=== PATIENT | male | born 1960 | race Caucasian/White ===

== ENCOUNTER 2017-11-20 21:13 | Emergency (ER) | payer OTHER ==
--- NOTE | 2017-11-20 23:39 | ER Document Report ---
ED Medical Screen (RME) - General Chief Complaint: Urinary Problem Stated Complaint: CONSTIPATION,PEEING BLOOD Time Seen by Provider: 11/20/17 23:35 Mode of Arrival: Ambulatory Information source: Patient Notes: 57-year-old male presents to ED urinating blood starting yesterday. He states he just dribbles a little bit at a time but it is blood. He states he has some left flank pain. He states she has had no bowel movement in 5 days he states has no little small bowel movements no bowel movements at all. He states he has a history of bipolar diabetes blood pressure and cholesterol. He states he smokes pack and 1/2-2 packs a day. Patient has hypoactive bowel sounds with a firm abdomen. He states this is his normal abdomen. I have greeted and performed a rapid initial assessment of this patient. A comprehensive ED assessment and evaluation of the patient, analysis of test results and completion of medical decision making process will be conducted by an additional ED providers. TRAVEL OUTSIDE OF THE [place] IN LAST 30 DAYS: No - Related Data Allergies/Adverse Reactions: No Known Allergies Allergy (Unverified 11/20/17 21:19) Physical Exam - Vital signs Vitals: Temp Pulse Resp BP Pulse Ox 98.2 F 102 H 18 149/82 H 97 11/20/17 21:37 11/20/17 21:37 11/20/17 21:37 11/20/17 21:37 11/20/17 21:37 Course - Vital Signs Vital signs: Temp Pulse Resp BP Pulse Ox 98.2 F 102 H 18 149/82 H 97 11/20/17 21:37 11/20/17 21:37 11/20/17 21:37 11/20/17 21:37 11/20/17 21:37
[2017-11-21 00:09] LABS: APPEARANCE,URINE CLEAR; BILIRUBIN,URINE NEGATIVE (NEGATIVE); COLOR,URINE RED; GLUCOSE, URINE 50 mg/dL (NEGATIVE); KETONES,URINE NEGATIVE (NEGATIVE); URINE SPECIFIC GRAVITY 1.009
[2017-11-21 00:10] LABS: LEUKOCYTE ESTERASE,URINE NEGATIVE (NEGATIVE); NITRITE,URINE NEGATIVE (NEGATIVE); PROTEIN,URINE 100 mg/dL (NEGATIVE); UROBILINOGEN,URINE NEGATIVE mg/dL (<2.0)
[2017-11-21 00:44] LABS: ABSOLUTE BASOPHILS # (AUTO) 0.1 10^3/uL (0.0-0.2); ABSOLUTE EOSINOPHILS # (AUTO) 0.1 10^3/uL (0.0-0.6); ABSOLUTE LYMPHOCYTES (AUTO) 2.8 10^3/uL (0.5-4.7); ABSOLUTE MONOCYTES (AUTO) 0.9 10^3/uL (0.1-1.4); ABSOLUTE NEUT (AUTO) 7.2 10^3/uL (1.7-8.2); BASOPHILS % (AUTO) 0.7 % (0-2); EOSINOPHILS % (AUTO) 1.1 % (0-6); HEMATOCRIT 46.4 % (37.9-51.0); HEMOGLOBIN 16.5 g/dL (13.5-17.0); LYMPHOCYTES % (AUTO) 25.2 % (13-45); MEAN CORPUSCULAR HEMOGLOBIN 31.2 pg (27.0-33.4); MEAN CORPUSCULAR HGB CONC 35.6 g/dL (32.0-36.0); MEAN CORPUSCULAR VOLUME 88 fl (80-97); MONOCYTES % (AUTO) 8.1 % (3-13); PLATELET COUNT 245 10^3/uL (150-450); RED CELL DISTRIBUTION WIDTH 13.2 % (11.5-14.0); SEGMENTED NEUTROPHILS % (AUTO) 64.9 % (42-78); TOTAL CELLS COUNTED % (AUTO) 100 %; WHITE BLOOD COUNT 11.1 10^3/uL (4.0-10.5)
[2017-11-21 01:14] LABS: ALANINE AMINOTRANSFERASE 41 U/L (21-72); ALBUMIN 5.1 g/dL (3.5-5.0); ALKALINE PHOSPHATASE 57 U/L (38-126); ANION GAP 16 (5-19); ASPARTATE AMINO TRANSFERASE 26 U/L (17-59); BILIRUBIN,DIRECT 0.5 mg/dL (0.0-0.4); BILIRUBIN,TOTAL 1.7 mg/dL (0.2-1.3); BLOOD UREA NITROGEN 23 mg/dL (7-20); CALCIUM 9.7 mg/dL (8.4-10.2); CARBON DIOXIDE 24 mmol/L (22-30); CHLORIDE 99 mmol/L (98-107); CREATINE KINASE 224 U/L (55-170); GLUCOSE 171 mg/dL (75-110); SODIUM 138.8 mmol/L (137-145); TOTAL PROTEIN 7.7 g/dL (6.3-8.2)
--- NOTE | 2017-11-21 01:21 | RADIOLOGY REPORT (SQ) ---
CT ABDOMEN WITHOUT IV CONTRAST HISTORY: New onset hematuria. COMPARISON: None. TECHNIQUE: CT scan of the abdomen and pelvis. This exam was performed according to our departmental dose-optimization program, which includes automated exposure control, adjustment of the mA and/or kV according to patient size and/or use of iterative reconstruction technique. FINDINGS: Lung bases are clear. No pleural or pericardial effusions. Hepatomegaly and hepatic steatosis. Calcifications within the pancreatic head and uncinate process. Gallbladder, spleen, and adrenal glands are unremarkable. Kidneys are normal without hydronephrosis. 3 mm obstructing stone in the distal right ureter with minimal proximal hydroureter (axial image 65/96). Hyperdense material within the gallbladder lumen suggesting blood products. Prostate gland and seminal vesicles are unremarkable. No bowel obstruction. Appendix is normal. Colonic diverticulosis without evidence of diverticulitis. No adenopathy or ascites. No abdominal aortic aneurysm or dissection. Osseous structures are intact. Bilateral fat-containing inguinal hernias IMPRESSION: Likely 3 mm obstructing stone in the distal right ureter with minimal proximal hydroureter. Hyperdense material in the bladder lumen suggesting blood products.
[2017-11-21 02:31] VITALS: BP 156/81
--- NOTE | 2017-11-21 02:47 | ER Document Report ---
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 The patient denies any associated pain. He states that initiating a urine flow is somewhat difficult secondary to the hematuria. He states that this feels the same as when he had a kidney stone in the past at which time again he had no pain. He has not seen his general doctor regarding today's concerns. He denies any nausea, vomiting, fever or constitutional symptoms. Nothing improves or worsens his symptoms. He does also note that he has not had a bowel movement for the past 5 days. TRAVEL OUTSIDE OF THE [place] IN LAST 30 DAYS: No - Related Data Allergies/Adverse Reactions: No Known Allergies Allergy (Unverified 11/20/17 21:19) Past Medical History - General Information source: Patient - Social History Smoking Status: Current Every Day Smoker Chew tobacco use (# tins/day): No Frequency of alcohol use: None Drug Abuse: None Lives with: Alone Family History: Reviewed & Not Pertinent Patient has suicidal ideation: No Patient has homicidal ideation: No Renal/ Medical History: Denies: Hx Peritoneal Dialysis Review of Systems - Review of Systems Notes: Constitutional: Negative for fever. HENT: Negative for sore throat. Eyes: Negative for visual changes. Cardiovascular: Negative for chest pain. Respiratory: Negative for shortness of breath. Gastrointestinal: Negative for abdominal pain, vomiting or diarrhea. Genitourinary: Positive for hematuria Musculoskeletal: Negative for back pain. Skin: Negative for rash. Neurological: Negative for headaches, weakness or numbness. 10 point ROS negative except as marked above and in HPI. Physical Exam - Vital signs Vitals: Temp Pulse Resp BP Pulse Ox 98.2 F 102 H 18 149/82 H 97 11/20/17 21:37 11/20/17 21:37 11/20/17 21:37 11/20/17 21:37 11/20/17 21:37 Interpretation: Tachycardic Notes: PHYSICAL EXAMINATION: GENERAL: Well-appearing, well-nourished and in no acute distress. HEAD: Atraumatic, normocephalic. EYES: Pupils equal round and reactive to light, extraocular movements intact, sclera anicteric, conjunctiva are normal. ENT: nares patent, oropharynx clear without exudates. Moist mucous membranes. NECK: Normal range of motion, supple without lymphadenopathy LUNGS: Breath sounds clear to auscultation bilaterally and equal. No wheezes rales or rhonchi. HEART: Regular rate and rhythm without murmurs ABDOMEN: Soft, nontender, normoactive bowel sounds. No guarding, no rebound. No masses appreciated. EXTREMITIES: Normal range of motion, no pitting or edema. No cyanosis. NEUROLOGICAL: No focal neurological deficits. Moves all extremities spontaneously and on command. PSYCH: Normal mood, normal affect. SKIN: Warm, Dry, normal turgor, no rashes or lesions noted. Course - Re-evaluation Re-evalutation: 11/21/17 02:46 Presents with findings consistent with acute nephrolithiasis. Urinalysis does show hematuria. Laboratory otherwise unremarkable. Pain was able to be controlled here in the emergency department. Patient is tolerating oral intake. Clinical history is not consistent with an acute abdominal aneurysm or dissection, DE, or pulmonary embolus. Urinalysis does not show findings consistent with an infected stone. Vitals have remained within normal limits. Patient will be discharged with recommendations to follow-up with urology, and return precautions. They are in agreement with this plan and verbalized indications return to emergency department. - Vital Signs Vital signs: Temp Pulse Resp BP Pulse Ox 98.2 F 91 16 156/81 H 97 11/20/17 21:37 11/21/17 02:00 11/21/17 02:00 11/21/17 02:00 11/21/17 02:00 - Laboratory Result Diagrams: 11/21/17 00:24 11/21/17 00:24 Laboratory results interpreted by me: 11/20/17 11/21/17 11/21/17 22:12 00:24 00:24 WBC 11.1 H BUN 23 H Glucose 171 H Total Bilirubin 1.7 H Direct Bilirubin 0.5 H Creatine Kinase 224 H Albumin 5.1 H Urine Protein 100 H Urine Glucose (UA) 50 H Urine Blood LARGE H - Diagnostic Test Radiology reviewed: Reports reviewed Discharge - Discharge Clinical Impression: Kidney stone on right side Hematuria Qualifiers: Hematuria type: gross Qualified Code(s): R31.0 - Gross hematuria Condition: Good Disposition: HOME, SELF-CARE Additional Instructions: Your symptoms should improve over the course of the next one week. Please also return if you develop fever, persistent vomiting, or any other symptoms that are concerning to you. You should take ibuprofen 600 mg every 6 hours for pain. You are also been sent home with a medication called Flomax to help pass the stone. Please follow-up with urology in the next 2-3 days. Prescriptions: Tamsulosin HCl [Flomax 0.4 mg Cap.sr] 0.4 mg PO DAILY #7 cap.sr.24h
== END 2017-11-21 02:57 | disposition home or self-care (01) ==
LOC: ER 21:13
DX: N20.0 Calculus of kidney (principal); R31.0 Gross hematuria; K59.00 Constipation, unspecified; F17.210 Nicotine dependence, cigarettes, uncomplicated; I10 Essential (primary) hypertension; Z87.442 Personal history of urinary calculi
CPT/HCPCS: 36415; 76380; 80053; 81001; 82550; 85025; 99284

== ENCOUNTER 2017-11-29 20:23 | Emergency (ER) | payer OTHER ==
[2017-11-29 20:35] VITALS: BP 145/86
[2017-11-29 22:41] LABS: BILIRUBIN,URINE NEGATIVE (NEGATIVE); GLUCOSE, URINE 50 mg/dL (NEGATIVE); KETONES,URINE NEGATIVE (NEGATIVE); LEUKOCYTE ESTERASE,URINE NEGATIVE (NEGATIVE); NITRITE,URINE NEGATIVE (NEGATIVE); PROTEIN,URINE >=500 mg/dL (NEGATIVE); URINE SPECIFIC GRAVITY 1.033
[2017-11-29 22:42] LABS: APPEARANCE,URINE TURBID; COLOR,URINE RED
[2017-11-29] MEDS ORDERED: CYCLOBENZAPRINE HCL 10 MG TABLET PO ONE (23:17)
--- NOTE | 2017-11-29 23:18 | ER Document Report ---
HPI - HPI Pain Level: Denies Notes: Patient is a 57-year-old male who presents to the ED complaining of hematuria 3 today. Patient states that he was evaluated about a week and half ago for hematuria and was found to have a 3 mm ureteral stone. Patient states that he has not had any pain or discomfort at that time and continues to have no pain. Patient states that after he was discharged his urine did end up clearing up after a few days. Patient states that his urine was clear until today. 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 Otherwise he denies any drug allergies and has no other concerns or complaints. He is eating and drinking without any difficulties. He is having normal bowel movements. Denies any headache, fever, URI, sore throat, chest pain, palpitations, syncope, cough, shortness of breath, wheeze, dyspnea, abdominal pain, nausea/vomiting/diarrhea, urinary retention, dysuria, back pain, loss of control of bowel or bladder, numbness/tingling, saddle anesthesia, muscle paralysis/weakness, or rash. - ROS Systems Reviewed and Negative: Yes All other systems reviewed and negative Past Medical History - Social History Smoking Status: Current Every Day Smoker Family History: Reviewed & Not Pertinent Renal/ Medical History: Denies: Hx Peritoneal Dialysis Vertical Provider Document - CONSTITUTIONAL Agree With Documented VS: Yes Notes: PHYSICAL EXAMINATION: GENERAL: Well-appearing, well-nourished and in no acute distress. I did notice pt having some muscle spasming during the visit. HEAD: Atraumatic, normocephalic. EYES: Pupils equal round and reactive to light, extraocular movements intact, sclera anicteric, conjunctiva are normal. ENT: Nares patent and without discharge. oropharynx clear without exudates. No tonsilar hypertrophy or erythema. Moist mucous membranes. NECK: Normal range of motion, supple without lymphadenopathy LUNGS: Breath sounds clear to auscultation bilaterally and equal. No wheezes rales or rhonchi. HEART: Regular rate and rhythm without murmurs, rubs, gallops. ABDOMEN: Soft, nontender, nondistended abdomen. No guarding, no rebound. No masses appreciated. Normal bowel sounds present. No CVA tenderness bilaterally. Musculoskeletal: FROM to passive/active. Strength 5+/5. Extremities: No cyanosis, clubbing, or edema b/l. Peripheral pulses 2+. Capillary refill less than 3 seconds. NEUROLOGICAL: Cranial nerves grossly intact. Normal speech, normal gait. Normal sensory, motor exams PSYCH: Normal mood, normal affect. SKIN: Warm, Dry, normal turgor, no rashes or lesions noted. - INFECTION CONTROL TRAVEL OUTSIDE OF THE [place] IN LAST 30 DAYS: No Course - Re-evaluation Re-evalutation: 11/30/17 00:31 Patient is an afebrile, well-hydrated 57-year-old male who presents to the ED with muscle spasming and hematuria. I suspect the hematuria is secondary to a possible passage of his known ureteral stone through the urethra. I did review with patient that although the most likely scenario is hematuria related to his known recent stone, it could also be a worst case scenario of a sign of cancer so he needs to monitor and follow-up appropriately. CBC, CMP, CK unremarkable for acute pathology. Urinalysis showed hematuria without pyuria. Patient does not have any pain or discomfort. Patient is tolerating p.o. I difficulties and is nontoxic-appearing. His abdomen is soft and nontender. No other labs or imaging warranted at this time based on H&P. Patient did receive Flexeril 10 mg today. Low suspicion/risk for acute appendicitis, bowel obstruction, acute cholecystitis, perforated diverticulitis, incarcerated hernia, pancreatitis, perforated ulcer, peritonitis, sepsis, testicular torsion, or other systemic emergent condition at this time. Patient is aware that his condition can change from initial presentation and he needs to monitor symptoms closely and seek medical attention if any acute changes. Conservative measures otherwise for symptoms. Recheck with PCM in 2-3 days. Schedule appointment with a urologist. Return to the ED with any worsening/concerning symptoms otherwise as reviewed in discharge. Patient is in agreement. - Vital Signs Vital signs: Temp Pulse Resp BP Pulse Ox 97.4 F 98 18 145/86 H 99 11/29/17 20:27 11/29/17 20:27 11/29/17 20:27 11/29/17 20:27 11/29/17 20:27 - Laboratory Result Diagrams: 11/29/17 23:50 11/29/17 23:50 Laboratory results interpreted by me: 11/29/17 21:52 Urine Protein >=500 H Urine Glucose (UA) 50 H Urine Blood LARGE H Urine Urobilinogen 2.0 H Discharge - Discharge Clinical Impression: Muscle spasm Hematuria Qualifiers: Hematuria type: unspecified type Qualified Code(s): R31.9 - Hematuria, unspecified Condition: Stable Disposition: HOME, SELF-CARE Instructions: Hematuria ([facility]) Additional Instructions: As reviewed, the most likely scenario to your hematuria is secondary to your known stone and possible recent passage of that stone. Worse case scenario painless hematuria can be a sign of cancer or other etiology. Monitor symptoms closely, and follow-up appropriately with your PCM/urologist. Push fluids (i.e. water, cranberry juice) Proper hygenic technique Keep the skin clean Tylenol/ibuprofen as needed Take medications as directed F/u with your PCM in 2-3 days for a recheck Schedule consult with a urologist for further evaluation and management. Return to the ED with any worsening symptoms and/or development of fever, headache, chest pain, palpitations, syncope, shortness of breath, trouble breathing, abdominal pain, n/v/d, blood in stool/urine, loss of control of bowel /bladder, urinary retention, or other worsening symptoms that are concerning to you. Prescriptions: Cyclobenzaprine HCl [Flexeril 10 mg Tablet] 10 mg PO TIDP PRN #15 tab PRN Reason: Forms: Elevated Blood Pressure, Smoking Cessation Education Referrals: MARIANELA GOLDMAN MD [MYRIAM NELSON] - Follow up as needed SHAWN MARTINEZ II, MD [MYRIAM NELSON] - Follow up in 3-5 days
[2017-11-30 00:13] LABS: ABSOLUTE BASOPHILS # (AUTO) 0.1 10^3/uL (0.0-0.2); ABSOLUTE EOSINOPHILS # (AUTO) 0.1 10^3/uL (0.0-0.6); ABSOLUTE LYMPHOCYTES (AUTO) 2.5 10^3/uL (0.5-4.7); ABSOLUTE MONOCYTES (AUTO) 0.8 10^3/uL (0.1-1.4); ABSOLUTE NEUT (AUTO) 8.2 10^3/uL (1.7-8.2); BASOPHILS % (AUTO) 0.4 % (0-2); EOSINOPHILS % (AUTO) 1.2 % (0-6); HEMOGLOBIN 16.4 g/dL (13.5-17.0); LYMPHOCYTES % (AUTO) 21.5 % (13-45); MEAN CORPUSCULAR HGB CONC 34.8 g/dL (32.0-36.0); MEAN CORPUSCULAR VOLUME 89 fl (80-97); MONOCYTES % (AUTO) 6.6 % (3-13); PLATELET COUNT 310 10^3/uL (150-450); RED BLOOD COUNT 5.28 10^6/uL (4.35-5.55); RED CELL DISTRIBUTION WIDTH 13.3 % (11.5-14.0); SEGMENTED NEUTROPHILS % (AUTO) 70.3 % (42-78); TOTAL CELLS COUNTED % (AUTO) 100 %; WHITE BLOOD COUNT 11.7 10^3/uL (4.0-10.5)
[2017-11-30 00:25] LABS: ALANINE AMINOTRANSFERASE 48 U/L (21-72); ALBUMIN 5.3 g/dL (3.5-5.0); ALKALINE PHOSPHATASE 64 U/L (38-126); ANION GAP 16 (5-19); ASPARTATE AMINO TRANSFERASE 28 U/L (17-59); BILIRUBIN,DIRECT 0.3 mg/dL (0.0-0.4); BLOOD UREA NITROGEN 15 mg/dL (7-20); CALCIUM 10.3 mg/dL (8.4-10.2); CARBON DIOXIDE 22 mmol/L (22-30); CHLORIDE 97 mmol/L (98-107); CREATINE KINASE 166 U/L (55-170); GLUCOSE 152 mg/dL (75-110); POTASSIUM 4.1 mmol/L (3.6-5.0); SODIUM 134.5 mmol/L (137-145); TOTAL PROTEIN 7.9 g/dL (6.3-8.2)
== END 2017-11-30 00:53 | disposition home or self-care (01) ==
LOC: ER 20:23
DX: M62.838 Other muscle spasm (principal); R31.9 Hematuria, unspecified
CPT/HCPCS: 36415; 80053; 81001; 82550; 85025; 99283

== ENCOUNTER 2017-12-01 12:26 | Inpatient (IN) | payer OTHER ==
--- NOTE | 2017-12-01 13:53 | ER Document Report ---
ED Medical Screen (RME) - General Chief Complaint: Possible Kidney Stone Stated Complaint: WEAK, NAUSEA Time Seen by Provider: 12/01/17 13:47 TRAVEL OUTSIDE OF THE [place] IN LAST 30 DAYS: No - Related Data Allergies/Adverse Reactions: No Known Allergies Allergy (Verified 11/29/17 20:24) Past Medical History - Social History Frequency of alcohol use: None Drug Abuse: Prescription drugs Endocrine Medical History: Reports: Hx Diabetes Mellitus Type 2 Renal/ Medical History: Denies: Hx Peritoneal Dialysis Physical Exam - Vital signs Vitals: Temp Pulse BP Pulse Ox 97.4 F 100 91/57 L 98 12/01/17 12:49 12/01/17 12:49 12/01/17 12:49 12/01/17 12:49 Course - Vital Signs Vital signs: Temp Pulse Resp BP Pulse Ox 97.4 F 100 91/57 L 98 12/01/17 12:49 12/01/17 12:49 12/01/17 12:49 12/01/17 12:49 - Laboratory Result Diagrams: 12/01/17 13:44 12/01/17 13:44
[2017-12-01] MEDS ORDERED: NORMAL SALINE 1000 ML 1,000 ML IV ONE ×2 (13:55→16:46)
--- NOTE | 2017-12-01 13:55 | ER Document Report ---
ED Medical Screen (RME) - General Chief Complaint: Possible Kidney Stone Stated Complaint: WEAK, NAUSEA Time Seen by Provider: 12/01/17 13:47 Mode of Arrival: Ambulatory Information source: Patient, [facility] Records Notes: 57-year-old male presents with complaint of "I feel like I am going to pass out ". Patient states that prior to arrival he had experienced dizziness which caused him to drop to his knees. He reports nausea, vomiting. This is the patient's third visit to the emergency department over the last week. He reports a 13 pound weight loss. 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 I have greeted and performed a rapid initial assessment of this patient. A comprehensive ED assessment and evaluation of the patient, analysis of test results and completion of medical decision making process we will be contacted by additional ED providers. PHYSICAL EXAMINATION: GENERAL: Well-appearing, well-nourished and in no acute distress. HEAD: Atraumatic, normocephalic. EYES: Pupils equal round extraocular movements intact, conjunctiva are normal. ENT: Nares patent NECK: Normal range of motion LUNGS: No respiratory distress Musculoskeletal: Normal range of motion NEUROLOGICAL: Normal speech, normal gait. PSYCH: Normal mood, normal affect. SKIN: Warm, Dry, normal turgor, no rashes or lesions noted. TRAVEL OUTSIDE OF THE [place] IN LAST 30 DAYS: No - HPI Onset: Just prior to arrival Quality of pain: Cramping Severity: Mild Associated Symptoms: Nausea, Vomiting Exacerbated by: Denies Relieved by: Denies Similar symptoms previously: Yes Recently seen / treated by doctor: Yes - Related Data Smoking: Cigarettes Frequency of alcohol use: Occasional Drug Abuse: None Allergies/Adverse Reactions: No Known Allergies Allergy (Verified 11/29/17 20:24) Past Medical History - Social History Frequency of alcohol use: None Drug Abuse: Prescription drugs Endocrine Medical History: Reports: Hx Diabetes Mellitus Type 2 Renal/ Medical History: Denies: Hx Peritoneal Dialysis Physical Exam - Vital signs Vitals: Temp Pulse BP Pulse Ox 97.4 F 100 91/57 L 98 12/01/17 12:49 12/01/17 12:49 12/01/17 12:49 12/01/17 12:49 Course - Vital Signs Vital signs: Temp Pulse Resp BP Pulse Ox 97.4 F 100 18 122/72 98 12/01/17 12:49 12/01/17 19:20 12/01/17 19:20 12/01/17 19:20 12/01/17 19:20 - Laboratory Result Diagrams: 12/01/17 13:44 12/01/17 13:44 Laboratory results interpreted by me: 12/01/17 12/01/17 12/01/17 13:44 13:44 15:09 WBC 14.0 H Absolute Neutrophils 10.6 H Sodium 132.5 L Chloride 91 L BUN 40 H Creatinine 4.28 H Est GFR ( Amer) 18 L Est GFR (Non-Af Amer) 14 L Glucose 166 H Total Bilirubin 1.5 H Direct Bilirubin 0.6 H Albumin 5.1 H Urine Protein >=500 H Urine Glucose (UA) 150 H Urine Blood LARGE H Ur Leukocyte Esterase TRACE H Doctor's Discharge - Discharge Clinical Impression: Hematuria, Renal failure, acute, UTI (urinary tract infection), density within bladder Condition: Fair Disposition: ADMITTED INPATIENT
[2017-12-01] MEDS ORDERED: ONDANSETRON 4 MG TAB.RAPDIS PO ONE (13:56)
[2017-12-01 14:02] LABS: ABSOLUTE EOSINOPHILS # (AUTO) 0.1 10^3/uL (0.0-0.6); ABSOLUTE LYMPHOCYTES (AUTO) 2.1 10^3/uL (0.5-4.7); ABSOLUTE MONOCYTES (AUTO) 1.1 10^3/uL (0.1-1.4); ABSOLUTE NEUT (AUTO) 10.6 10^3/uL (1.7-8.2); BASOPHILS % (AUTO) 0.3 % (0-2); EOSINOPHILS % (AUTO) 0.6 % (0-6); HEMATOCRIT 44.7 % (37.9-51.0); HEMOGLOBIN 15.5 g/dL (13.5-17.0); LYMPHOCYTES % (AUTO) 15.2 % (13-45); MEAN CORPUSCULAR HEMOGLOBIN 30.7 pg (27.0-33.4); MEAN CORPUSCULAR HGB CONC 34.6 g/dL (32.0-36.0); MEAN CORPUSCULAR VOLUME 89 fl (80-97); PLATELET COUNT 293 10^3/uL (150-450); RED BLOOD COUNT 5.04 10^6/uL (4.35-5.55); RED CELL DISTRIBUTION WIDTH 13.7 % (11.5-14.0); SEGMENTED NEUTROPHILS % (AUTO) 75.9 % (42-78); TOTAL CELLS COUNTED % (AUTO) 100 %
[2017-12-01 14:28] LABS: ALANINE AMINOTRANSFERASE 40 U/L (21-72); ALBUMIN 5.1 g/dL (3.5-5.0); ALKALINE PHOSPHATASE 49 U/L (38-126); ANION GAP 19 (5-19); ASPARTATE AMINO TRANSFERASE 26 U/L (17-59); BILIRUBIN,DIRECT 0.6 mg/dL (0.0-0.4); BILIRUBIN,TOTAL 1.5 mg/dL (0.2-1.3); BLOOD UREA NITROGEN 40 mg/dL (7-20); CALCIUM 8.9 mg/dL (8.4-10.2); CARBON DIOXIDE 23 mmol/L (22-30); CHLORIDE 91 mmol/L (98-107); GLUCOSE 166 mg/dL (75-110); POTASSIUM 4.6 mmol/L (3.6-5.0); SODIUM 132.5 mmol/L (137-145); TOTAL PROTEIN 7.4 g/dL (6.3-8.2)
[2017-12-01] MEDS ORDERED: RINGERS SOLUTION,LACTATED 1,000 ML IV ONE (14:59)
[2017-12-01 15:37] LABS: CREATINE KINASE 122 U/L (55-170)
--- NOTE | 2017-12-01 15:48 | RADIOLOGY REPORT (SQ) ---
EXAM DESCRIPTION: CHEST 2 VIEWS COMPLETED DATE/TIME: 12/01/2017 3:15 pm REASON FOR STUDY: 4ppd smoking w weight loss COMPARISON: None. EXAM PARAMETERS: NUMBER OF VIEWS: two views TECHNIQUE: Digital Frontal and Lateral radiographic views of the chest acquired. RADIATION DOSE: NA LIMITATIONS: none FINDINGS: LUNGS AND PLEURA: No opacities, masses or pneumothorax. No pleural effusion. MEDIASTINUM AND HILAR STRUCTURES: No masses or contour abnormalities. HEART AND VASCULAR STRUCTURES: Heart normal size. No evidence for failure. BONES: Rib deformities on the left from prior injury. HARDWARE: None in the chest. OTHER: No other significant finding. IMPRESSION: NO ACUTE RADIOGRAPHIC FINDING IN THE CHEST. TECHNICAL DOCUMENTATION: JOB ID: [id number] [email or web address] Rights Reserved Reading location - IP/workstation name: [email or web address]
[2017-12-01 17:03] LABS: COLOR,URINE RED
[2017-12-01 17:04] LABS: APPEARANCE,URINE TURBID; BILIRUBIN,URINE NEGATIVE (NEGATIVE); GLUCOSE, URINE 150 mg/dL (NEGATIVE); KETONES,URINE NEGATIVE (NEGATIVE); URINE SPECIFIC GRAVITY 1.022
[2017-12-01 17:05] LABS: LEUKOCYTE ESTERASE,URINE TRACE (NEGATIVE); NITRITE,URINE NEGATIVE (NEGATIVE); PROTEIN,URINE >=500 mg/dL (NEGATIVE); UROBILINOGEN,URINE NEGATIVE mg/dL (<2.0)
--- NOTE | 2017-12-01 17:13 | ER Document Report ---
ED General - General Chief Complaint: Possible Kidney Stone Stated Complaint: WEAK, NAUSEA Time Seen by Provider: 12/01/17 13:47 Mode of Arrival: Ambulatory Information source: Patient Notes: Patient presents complaining of weakness and feeling faint. Patient states that he was working out in the heat today and he felt dizzy and fell to his knees. Patient states that he did not pass out. Patient states that this morning he did have nausea and vomiting 3 episodes. Patient states that he feels that the vomiting was due to drinking cranberry juice. Patient states he was attempting to drink cranberry juice because he has had hematuria and was wanting to help treat the blood in his urine. Patient does report leg cramps over the past few days. Patient was evaluated here in the emergency department on 828 and found to have a right distal ureteral stone. Patient was given nausea medicine in triage and states that he is feeling much better. Patient presently denies any leg cramps. Patient denies any nausea at this time. Patient denies any abdominal pain or back pain. TRAVEL OUTSIDE OF THE [place] IN LAST 30 DAYS: No - HPI Onset: Last week Onset/Duration: Worse Quality of pain: No pain Associated symptoms: Nausea, Vomiting, Weakness. denies: Chest pain, Nonproductive cough, Productive cough, Fever, Shortness of breath Exacerbated by: Denies Relieved by: Denies Similar symptoms previously: No Recently seen / treated by doctor: Yes - Related Data Allergies/Adverse Reactions: No Known Allergies Allergy (Verified 11/29/17 20:24) Past Medical History - General Information source: Patient, [facility] - Social History Smoking Status: Current Every Day Smoker Frequency of alcohol use: None Drug Abuse: Prescription drugs Occupation: Construction Lives with: Family Family History: Reviewed & Not Pertinent Patient has suicidal ideation: No Patient has homicidal ideation: No - Past Medical History Cardiac Medical History: Reports: Hx Hypertension Endocrine Medical History: Reports: Hx Diabetes Mellitus Type 2 Renal/ Medical History: Denies: Hx Peritoneal Dialysis Psychiatric Medical History: Reports: Hx Anxiety, Hx Depression Surgical Hx: Negative Review of Systems - Review of Systems Constitutional: Weakness. denies: Fever, Recent illness EENT: No symptoms reported Cardiovascular: Lightheaded. denies: Chest pain, Palpitations Respiratory: No symptoms reported. denies: Cough, Short of breath Gastrointestinal: Nausea, Vomiting. denies: Abdominal pain, Diarrhea Genitourinary: Hematuria. denies: Dysuria, Flank pain Male Genitourinary: No symptoms reported Musculoskeletal: No symptoms reported. denies: Back pain Skin: No symptoms reported Hematologic/Lymphatic: No symptoms reported Neurological/Psychological: No symptoms reported Physical Exam - Vital signs Vitals: Temp Pulse BP Pulse Ox 97.4 F 100 91/57 L 98 12/01/17 12:49 12/01/17 12:49 12/01/17 12:49 12/01/17 12:49 - General General appearance: Appears well, Alert In distress: None - HEENT Head: Normocephalic, Atraumatic Eyes: Normal Conjunctiva: Normal Nasal: Normal Mouth/Lips: Normal Pharynx: Normal Neck: Normal - Respiratory Respiratory status: No respiratory distress Chest status: Nontender Breath sounds: Normal. No: Rales, Rhonchi, Stridor, Wheezing Chest palpation: Normal - Cardiovascular Rhythm: Regular Heart sounds: S1 appreciated, S2 appreciated Murmur: No - Abdominal Inspection: Normal Distension: No distension Bowel sounds: Normal Tenderness: Nontender Organomegaly: No organomegaly - Back Back: Normal, Nontender. No: CVA tenderness - Extremities General upper extremity: Normal inspection, Normal ROM General lower extremity: Normal inspection, Normal ROM - Neurological Neuro grossly intact: Yes Cognition: Normal [place] Coma Scale Eye Opening: Spontaneous [place]la Coma Scale Verbal: Oriented [place] Coma Scale Motor: Obeys Commands Carla Coma Scale Total: 15 - Psychological Associated symptoms: Normal affect, Normal mood - Skin Skin Temperature: Warm Skin Moisture: Dry Skin Color: Normal Course - Re-evaluation Re-evalutation: 12/01/17 17:[address] Garzon regarding patient presentation. Dr. Garzon advises re-imaging with a CT scan due to history of stone as well as acute renal failure. Recommends adding on coags as well. Dr. Garzon agrees to be consulted on this patient pending his inevitable admission at this point. Attempted to consult with Dr. Lenz who advises having the diagnostic evaluation complete before consulting with the hospitalist. 12/01/17 19:34 Attempted to consult with Dr. Clinton regarding need for admission. Dr. Clinton once to be certain that Dr. Garzon will take care of the patient over the weekend and that Dr. Garzon will evaluate patient tonight. Consulted again with Dr. Garzon who states that he is relocation commissioner until Monday and that he will be happy to take care of the patient over the weekend during his admission. Dr. Garzon at this time does not feel that patient needs to emergently be evaluated tonight and can be seen in the morning. 12/01/17 19:37 Dr. Clinton agrees to accept patient to telemetry. Advised of conversation with Dr. Garzon and offered his direct number for consultation if needed. Patient advised of plan for admission is agreeable with plan of care at this time. - Vital Signs Vital signs: Temp Pulse Resp BP Pulse Ox 97.4 F 100 18 122/72 98 12/01/17 12:49 12/01/17 19:20 12/01/17 19:20 12/01/17 19:20 12/01/17 19:20 - Laboratory Result Diagrams: 12/01/17 13:44 12/01/17 13:44 Laboratory results interpreted by me: 12/01/17 12/01/17 12/01/17 13:44 13:44 15:09 WBC 14.0 H Absolute Neutrophils 10.6 H Sodium 132.5 L Chloride 91 L BUN 40 H Creatinine 4.28 H Est GFR ( Amer) 18 L Est GFR (Non-Af Amer) 14 L Glucose 166 H Total Bilirubin 1.5 H Direct Bilirubin 0.6 H Albumin 5.1 H Urine Protein >=500 H Urine Glucose (UA) 150 H Urine Blood LARGE H Ur Leukocyte Esterase TRACE H 12/01/17 18:55 Labs- Entire Visit 12/01/17 12/01/17 12/01/17 13:44 13:44 13:44 WBC 14.0 H RBC 5.04 Hgb 15.5 Hct 44.7 MCV 89 MCH 30.7 MCHC 34.6 RDW 13.7 Plt Count 293 Seg Neutrophils % 75.9 Lymphocytes % 15.2 Monocytes % 8.0 Eosinophils % 0.6 Basophils % 0.3 Absolute Neutrophils 10.6 H Absolute Lymphocytes 2.1 Absolute Monocytes 1.1 Absolute Eosinophils 0.1 Absolute Basophils 0.0 PT INR APTT Sodium 132.5 L Potassium 4.6 Chloride 91 L Carbon Dioxide 23 Anion Gap 19 BUN 40 H Creatinine 4.28 H Est GFR ( Amer) 18 L Est GFR (Non-Af Amer) 14 L Glucose 166 H Calcium 8.9 Total Bilirubin 1.5 H Direct Bilirubin 0.6 H Neonat Total Bilirubin Not Reportable Neonat Direct Bilirubin Not Reportable Neonat Indirect Bili Not Reportable AST 26 ALT 40 Alkaline Phosphatase 49 Creatine Kinase 122 Total Protein 7.4 Albumin 5.1 H Urine Color Urine Appearance Urine pH Ur Specific [place] Urine Protein Urine Glucose (UA) Urine Ketones Urine Blood Urine Nitrite Urine Bilirubin Urine Urobilinogen Ur Leukocyte Esterase Urine WBC (Auto) Urine RBC (Auto) U Hyaline Cast (Auto) Urine Bacteria (Auto) Urine Red Cell Clumps Urine WBC Clumps Squamous Epi Cells Auto U Non-Squamous Epis Auto Calcium Carbonate Cryst Calcium Phosphate Cryst Calcium Oxalate Cr Auto Leucine Crystals Cystine Crystals Uric Acid Cryst (Auto) Triple Phos Cryst (Auto) Tyrosine Crystals Amorphous Sediment Auto Cellular Casts Epithelial Casts (Auto) Fatty Casts Granular Casts (Auto) Waxy Casts (Auto) Broad Casts RBC Casts (Auto) WBC Casts (Auto) Urine Mucus (Auto) U Trichomonas (Auto) Ur Yeast w Hyphae Urine Yeast (Budding) Urine Ascorbic Acid 12/01/17 12/01/17 12/01/17 13:44 14:00 15:09 WBC RBC Hgb Hct MCV MCH MCHC RDW Plt Count Seg Neutrophils % Lymphocytes % Monocytes % Eosinophils % Basophils % Absolute Neutrophils Absolute Lymphocytes Absolute Monocytes Absolute Eosinophils Absolute Basophils PT 12.7 INR 0.91 APTT 26.8 Sodium Potassium Chloride Carbon Dioxide Anion Gap BUN Creatinine Est GFR ( Amer) Est GFR (Non-Af Amer) Glucose Calcium Total Bilirubin Direct Bilirubin Neonat Total Bilirubin Neonat Direct Bilirubin Neonat Indirect Bili AST ALT Alkaline Phosphatase Creatine Kinase Total Protein Albumin Urine Color Cancelled RED Urine Appearance Cancelled TURBID Urine pH Cancelled 6.0 Ur Specific [place] Cancelled 1.022 Urine Protein Cancelled >=500 H Urine Glucose (UA) Cancelled 150 H Urine Ketones Cancelled NEGATIVE Urine Blood Cancelled LARGE H Urine Nitrite Cancelled NEGATIVE Urine Bilirubin Cancelled NEGATIVE Urine Urobilinogen Cancelled NEGATIVE Ur Leukocyte Esterase Cancelled TRACE H Urine WBC (Auto) Cancelled >182 Urine RBC (Auto) Cancelled 4+ U Hyaline Cast (Auto) Cancelled Urine Bacteria (Auto) Cancelled Urine Red Cell Clumps Cancelled Urine WBC Clumps Cancelled Squamous Epi Cells Auto Cancelled TRACE U Non-Squamous Epis Auto Cancelled Calcium Carbonate Cryst Cancelled Calcium Phosphate Cryst Cancelled Calcium Oxalate Cr Auto Cancelled Leucine Crystals Cancelled Cystine Crystals Cancelled Uric Acid Cryst (Auto) Cancelled Triple Phos Cryst (Auto) Cancelled Tyrosine Crystals Cancelled Amorphous Sediment Auto Cancelled Cellular Casts Cancelled Epithelial Casts (Auto) Cancelled Fatty Casts Cancelled Granular Casts (Auto) Cancelled Waxy Casts (Auto) Cancelled Broad Casts Cancelled RBC Casts (Auto) Cancelled WBC Casts (Auto) Cancelled Urine Mucus (Auto) Cancelled U Trichomonas (Auto) Cancelled Ur Yeast w Hyphae Cancelled Urine Yeast (Budding) Cancelled Urine Ascorbic Acid Cancelled NEGATIVE - Diagnostic Test Radiology reviewed: Reports reviewed Discharge - Discharge Clinical Impression: density within bladder Hematuria Qualifiers: Hematuria type: gross Qualified Code(s): R31.0 - Gross hematuria Renal failure, acute Qualifiers: Acute renal failure type: unspecified Qualified Code(s): N17.9 - Acute kidney failure, unspecified UTI (urinary tract infection) Qualifiers: Urinary tract infection type: site unspecified Hematuria presence: with hematuria Qualified Code(s): N39.0 - Urinary tract infection, site not specified Condition: Fair Disposition: ADMITTED INPATIENT Admitting Provider: Hospitalist Unit Admitted: Telemetry
[2017-12-01] MEDS ORDERED: CEFTRIAXONE INJ 1000 MG VIAL IV ONE (17:15)
--- NOTE | 2017-12-01 17:34 | RADIOLOGY REPORT (SQ) ---
EXAM DESCRIPTION: CT LTD RENAL STONE PROTOCOL ON COMPLETED DATE/TIME: 12/01/2017 5:17 pm REASON FOR STUDY: hematuria, acute renal failure, hx stone COMPARISON: 11/21/2017 TECHNIQUE: CT scan of the abdomen and pelvis performed without intravenous or oral contrast. Images reviewed with lung, soft tissue, and bone windows. Reconstructed coronal and sagittal MPR images revi ewed. All images stored on PACS. All CT scanners at this facility use dose modulation, iterative reconstruction, and/or weight based d osing when appropriate to reduce radiation dose to as low as reasonably achievable (ALARA). [facility]: Dose Right [facility]: CareDose [facility]: Dose Right [facility]: Teradose 4D [facility]: Intiza RADIATION DOSE: mGy. LIMITATIONS: None. FINDINGS: LOWER CHEST: No significant findings. No nodules or infiltrates. NON-CONTRASTED LIVER, SPLEEN, ADRENALS: Evaluation limited by lack of IV contrast. No identified sign ificant masses. Again the liver and spleen appear enlarged. PANCREAS: No masses. No peripancreatic inflammatory changes. Calcifications are again identified in the region of the pancreatic head and uncinate process which may be related to chronic pancreatitis. GALLBLADDER: No identified stones by CT criteria. No inflammatory changes to suggest cholecystitis. RIGHT KIDNEY AND URETER: No suspicious masses. Assessment limited by lack of IV contrast. No signif icant calcifications. No hydronephrosis or hydroureter. LEFT KIDNEY AND URETER: No suspicious masses. Assessment limited by lack of IV contrast. No signifi cant calcifications. No hydronephrosis or hydroureter. AORTA AND RETROPERITONEUM: No aneurysm. No retroperitoneal masses or adenopathy. BOWEL AND PERITONEAL CAVITY: No obvious masses or inflammatory changes. No free fluid. APPENDIX: Normal. PELVIS, BLADDER, AND ABDOMINAL WALL:No abnormal masses. No free fluid. Tiny calcific density is iden tified in the bladder posteriorly on the right which could be within the right uterovesical junction or represent a recently passed ureteric calculus. No significant proximal hydronephrosis or hydroure ter is seen on the right. There is relative increased density in the bladder which was present on e previous study and could represent a hematoma or mass. Again there is some prominence of the prost ate gland with a prostatic calcification the previously described fat containing inguinal hernias are again identified. BONES: No significant findings. OTHER: No other significant finding. IMPRESSION: No renal calculi are identified. Tiny calcific density is identified in the bladder pos teriorly on the right which could be within the right uterovesical junction or represent a recently p assed ureteric calculus. There is no significant hydronephrosis or hydroureter involving the right k idney. There is relative increased density in the bladder which was present on the previous study an d could represent a hematoma or mass. Clinical correlation is recommended. Other findings as noted above COMMENT: Quality ID # [id number]: Final reports with documentation of one or more dose reduction techniques (e.g., Automated exposure control, adjustment of the mA and/or kV according to patient size, use of iterative reconstruction technique) TECHNICAL DOCUMENTATION: JOB ID: [id number] [employer]- All Rights Reserved Reading location - IP/workstation name: [email or web address]
[2017-12-01] MEDS ORDERED: NORMAL SALINE 1000 ML 1,000 ML IV PRN ×2 (17:59→20:32)
[2017-12-01 18:19] LABS: INTERNATIONAL RATION (INR) 0.91; PROTHROMBIN TIME 12.7 SEC (11.4-15.4)
[2017-12-01 18:20] LABS: PARTIAL THROMBOPLASTIN TIME 26.8 SEC (23.5-35.8)
--- NOTE | 2017-12-01 19:18 | EKG REPORT ---
SEVERITY:- ABNORMAL ECG - SINUS RHYTHM INFERIOR INFARCT, AGE INDETERMINATE : Confirmed by: Anam Nayak MD 01-Dec-2017 19:17:45
[2017-12-01] MEDS ORDERED: OXYCODONE-ACETAMINOPHEN 5-325 MG TABLET PO PRN (20:32)
[2017-12-01] MEDS ORDERED: PROMETHAZINE HCL INJ 25 MG/1 ML VIAL IV PRN (20:32)
[2017-12-01] MEDS ORDERED: ACETAMINOPHEN 325 MG TABLET PO PRN (20:32)
[2017-12-01] MEDS ORDERED: MAG HYDROX/AL HYDROX/SIMETH SUSP 30 ML UDCUP PO PRN (20:32)
[2017-12-01] MEDS ORDERED: CYCLOBENZAPRINE HCL 10 MG TABLET PO ONE (22:54)
[2017-12-01] MEDS ORDERED: QUETIAPINE FUMARATE 100 MG TABLET PO PRN (23:37)
[2017-12-02] MEDS ORDERED: NICOTINE 21 MG/24 HR PATCH.TD24 TD PRN (00:51)
--- NOTE | 2017-12-02 00:51 | PDOC H&P ---
History of Present Illness Admission Date/PCP: 12/01/17 19: Patient complains of: Hematuria History of Present Illness: TRACE SARMIENTO is a 57 year old male presents complaining of weakness and feeling faint. Patient states that he was working out in the heat today and he felt dizzy and fell to his knees. Patient states that he did not pass out. Patient states that this morning he did have nausea and vomiting 3 episodes. Patient states that he feels that the vomiting was due to drinking cranberry juice. Patient states he was attempting to drink cranberry juice because he has had hematuria and was wanting to help treat the blood in his urine. Patient does report leg cramps over the past few days. Patient was evaluated here in the emergency department on 828 and found to have a right distal ureteral stone. Patient was given nausea medicine in triage and states that he is feeling much better. Patient presently denies any leg cramps. Patient denies any nausea at this time. Patient denies any abdominal pain or back pain. Tells me he has lost 13 pounds in 2 weeks. He started having hematuria with blood clots, he has not been eating for the last 3 days. Of my evaluation after IV fluids his urine has bee our urologist conche loader and unloader and has been contacted by the ED attending, he agrees to see the patient and give us further recommendations. N clearing. Patient has history of kidney stones and about 4-5 months in [place] he had also a couple of times hematuria. Patient has been in our facility 3 times with hematuria felt secondary to kidney stones. Dr. Lewis is our urologist conche loader and unloader who agrees to see the patient in consultation. Past Medical History Cardiac Medical History: Reports: Hypertension Endocrine Medical History: Reports: Diabetes Mellitus Type 2 Psychiatric Medical History: Reports: Bipolar Disorder, Depression Past Surgical History Past Surgical History: Reports: None Social History Lives with: Family Smoking Status: Current Every Day Smoker - Used to a smoke 4 packs per day, now smokes from 10 cigarettes to 1 pack per day Frequency of Alcohol Use: None - Stop drinking 8 years ago Hx Recreational Drug Use: Yes Drugs: Marijuana Past Social History Note: Works in [employer] Family History Family History: Reviewed & Not Pertinent Parental Family History Reviewed: No Children Family History Reviewed: NA Sibling(s) Family History Reviewed.: NA Medication/Allergy Home Medications: Aspirin [Aspirin EC] 81 mg PO QPM 12/01/17 Metformin HCl [Glucophage 500 mg Tablet] 500 mg PO Q12 12/01/17 Quetiapine Fumarate [Seroquel] 800 mg PO QHS 12/01/17 Allergies/Adverse Reactions: No Known Allergies Allergy (Verified 11/29/17 20:24) Review of Systems Review of Systems: As outlined above, all others negative Physical Exam Vital Signs: Temp Pulse Resp BP Pulse Ox 98.0 F 94 29 H 115/63 97 12/01/17 23:14 12/01/17 22:12 12/01/17 23:14 12/01/17 23:14 12/01/17 23:14 Additional comments: General appearance: Well-developed, well-nourished, alert and cooperative, and appears to be in no acute distress Head: Normocephalic Eyes: PEERL, EOMI, vision is grossly intact. Ears: External auditory canal and tympanic membranes clear, hearing grossly intact. Nose: No nasal discharge. Throat: Oral cavity and pharynx normal. No inflammation, swelling, exudate or lesions. Neck: Neck supple, nontender without lymphadenopathy, masses or thyromegaly. Cardiac: Normal S1 and S2. No S3, S4 or murmurs. Rhythm is regular. There is no peripheral edema, cyanosis or pallor. Extremities are warm and well perfused. Capillary refill is less than 2 seconds. No carotid bruits. Lungs: Clear to auscultation and percussion without rales, rhonchi, wheezing or diminished breath sounds. Not using accessory muscles. Abdomen: Positive bowel sounds. Soft. Nondistended, nontender. No guarding or rebound. No masses. No hepatosplenomegaly Extremities: No significant deformity or joint abnormality. No edema. Peripheral pulses intact. No varicosities. Neurological: Cranial nerves II through XII grossly intact. Strength and sensation symmetric and intact throughout. Reflexes 2+ throughout. Skin: Skin normal color, texture and turgor with no lesions or eruptions, warm and dry. Psychiatric: The mental examination revealed the patient was oriented to person , place, and time. The patient was able to demonstrate good judgment on recent , without hallucinations, abnormal affect or abnormal behaviors. Results Laboratory Results: 12/01/17 12/01/17 12/01/17 13:44 13:44 13:44 WBC 14.0 H RBC 5.04 Hgb 15.5 Hct 44.7 MCV 89 MCH 30.7 MCHC 34.6 RDW 13.7 Plt Count 293 Seg Neutrophils % 75.9 Lymphocytes % 15.2 Monocytes % 8.0 Eosinophils % 0.6 Basophils % 0.3 Absolute Neutrophils 10.6 H Absolute Lymphocytes 2.1 Absolute Monocytes 1.1 Absolute Eosinophils 0.1 Absolute Basophils 0.0 PT INR APTT Sodium 132.5 L Potassium 4.6 Chloride 91 L Carbon Dioxide 23 Anion Gap 19 BUN 40 H Creatinine 4.28 H Est GFR ( Amer) 18 L Est GFR (Non-Af Amer) 14 L Glucose 166 H POC Glucose Calcium 8.9 Total Bilirubin 1.5 H Direct Bilirubin 0.6 H AST 26 ALT 40 Alkaline Phosphatase 49 Creatine Kinase 122 Total Protein 7.4 Albumin 5.1 H Urine Color Urine Appearance Urine pH Ur Specific [place] Urine Protein Urine Glucose (UA) Urine Ketones Urine Blood Urine Nitrite Urine Bilirubin Urine Urobilinogen Ur Leukocyte Esterase Urine WBC (Auto) Urine RBC (Auto) Squamous Epi Cells Auto Urine Ascorbic Acid 12/01/17 12/01/17 12/01/17 13:44 15:09 23:28 WBC RBC Hgb Hct MCV MCH MCHC RDW Plt Count Seg Neutrophils % Lymphocytes % Monocytes % Eosinophils % Basophils % Absolute Neutrophils Absolute Lymphocytes Absolute Monocytes Absolute Eosinophils Absolute Basophils PT 12.7 INR 0.91 APTT 26.8 Sodium Potassium Chloride Carbon Dioxide Anion Gap BUN Creatinine Est GFR ( Amer) Est GFR (Non-Af Amer) Glucose POC Glucose 184 H Calcium Total Bilirubin Direct Bilirubin AST ALT Alkaline Phosphatase Creatine Kinase Total Protein Albumin Urine Color RED Urine Appearance TURBID Urine pH 6.0 Ur Specific [place] 1.022 Urine Protein >=500 H Urine Glucose (UA) 150 H Urine Ketones NEGATIVE Urine Blood LARGE H Urine Nitrite NEGATIVE Urine Bilirubin NEGATIVE Urine Urobilinogen NEGATIVE Ur Leukocyte Esterase TRACE H Urine WBC (Auto) >182 Urine RBC (Auto) 4+ Squamous Epi Cells Auto TRACE Urine Ascorbic Acid NEGATIVE Impressions: Chest X-Ray 12/01/17 13:56 IMPRESSION: NO ACUTE RADIOGRAPHIC FINDING IN THE CHEST. Limited or Localized CT 12/01/17 17:07 IMPRESSION: No renal calculi are identified. Tiny calcific density is identified in the bladder posteriorly on the right which could be within the right uterovesical junction or represent a recently passed ureteric calculus. There is no significant hydronephrosis or hydroureter involving the right kidney. There is relative increased density in the bladder which was present on the previous study and could represent a hematoma or mass. Clinical correlation is recommended. Other findings as noted above Assessment & Plan - Diagnosis (1) Hematuria Qualifiers: Hematuria type: gross Qualified Code(s): R31.0 - Gross hematuria Is this a current diagnosis for this admission?: Yes Plan: Patient has multiple episodes of hematuria, felt secondary to kidney stones. CT abdomen in the ED shows a recent passed stone with hematoma versus mass in the bladder. Urology has been consulted and Dr. Garzon will see the patient. Patient may need a cystoscopy. Was not recommended CBI and the patient is clearing his urine. We will keep the patient on IV fluids. (2) Renal failure, acute Qualifiers: Acute renal failure type: unspecified Qualified Code(s): N17.9 - Acute kidney failure, unspecified Is this a current diagnosis for this admission?: Yes Plan: Likely secondary to kidney stone. Patient on IV fluids. Will reassess renal panel in the morning. (3) Diabetes mellitus type 2 in nonobese Is this a current diagnosis for this admission?: Yes Plan: Metformin on hold. Accu-Cheks q. before meals and at bedtime, insulin lispro sliding scale, hypoglycemia protocol. (4) Tobacco dependence Is this a current diagnosis for this admission?: Yes Plan: Nicotine patch 21 mg a day. - Time Time Spent: 30 to 50 Minutes - Inpatient Certification Based on my medical assessment, after consideration of the patient's comorbidities, presenting symptoms, or acuity I expect that the services needed warrant INPATIENT care.: Yes I certify that my determination is in accordance with my understanding of Medicare's requirements for reasonable and necessary INPATIENT services [42 CFR 412.3e].: Yes Medical Necessity: Risk of Complication if Not Cared For in Hospital
[2017-12-02] MEDS ORDERED: INSULIN LISPRO 100 UNIT/ML 3 ML VIAL SUBCUT PRN (00:52)
[2017-12-02] MEDS ORDERED: GLUCAGON,HUMAN RECOMB 1 MG INJ IM PRN (00:52)
[2017-12-02] MEDS ORDERED: DEXTROSE 40% GEL 15 GM TUBE PO PRN ×2 (00:52)
[2017-12-02] MEDS ORDERED: DEXTROSE 50%-WATER 25 GM/50 ML DISP.SYRIN IV PRN ×2 (00:52)
[2017-12-02 05:36] LABS: HEMATOCRIT 36.2 % (37.9-51.0); MEAN CORPUSCULAR HEMOGLOBIN 31.4 pg (27.0-33.4); MEAN CORPUSCULAR HGB CONC 35.5 g/dL (32.0-36.0); MEAN CORPUSCULAR VOLUME 88 fl (80-97); PLATELET COUNT 201 10^3/uL (150-450); RED CELL DISTRIBUTION WIDTH 13.2 % (11.5-14.0); WHITE BLOOD COUNT 6.9 10^3/uL (4.0-10.5)
[2017-12-02 05:49] LABS: ANION GAP 14 (5-19); BLOOD UREA NITROGEN 39 mg/dL (7-20); CALCIUM 8.1 mg/dL (8.4-10.2); CARBON DIOXIDE 21 mmol/L (22-30); CHLORIDE 99 mmol/L (98-107); GLUCOSE 210 mg/dL (75-110); POTASSIUM 3.7 mmol/L (3.6-5.0); SODIUM 134.1 mmol/L (137-145)
[2017-12-02 05:53] LABS: HEMOGLOBIN 12.9 g/dL (13.5-17.0)
--- NOTE | 2017-12-02 09:03 | PDOC CONSULTATION ---
Consultation Consult Date: 12/02/17 Consult reason:: Gross hematuria, recently passed distal ureteral stone, acute renal failure History of Present Illness Admission Date/PCP: 12/01/17 19:53 ANT HASSAN MD History of Present Illness: TRACE SARMIENTO is a 57 year old male Past Medical History Cardiac Medical History: Reports: Hypertension Endocrine Medical History: Reports: Diabetes Mellitus Type 2 Renal/ History Note: Patient states that approximately 4 months ago he passed visible blood for the first time. It resolved spontaneously so he did not mention this to anyone. When it happened again several months ago he mentioned it to his physician and was scheduled for an MRI. He was unable to tolerate the closeness of the MRI and so did not have any further workup. His episodes of hematuria started 5 days ago and has been intermittent. Psychiatric Medical History: Reports: Bipolar Disorder, Depression Past Surgical History Past Surgical History: Reports: None Social History Lives with: Family Smoking Status: Current Every Day Smoker Cigarettes Packs Per Day: 0.5 Frequency of Alcohol Use: None - Stop drinking 8 years ago Hx Recreational Drug Use: Yes Drugs: Marijuana - Advance Directive Resuscitation Status: Full Code Family History Family History: Reviewed & Not Pertinent Parental Family History Reviewed: No Children Family History Reviewed: No Sibling(s) Family History Reviewed.: No Medication/Allergy Home Medications: Aspirin [Aspirin EC] 81 mg PO QPM 12/01/17 Metformin HCl [Glucophage 500 mg Tablet] 500 mg PO Q12 12/01/17 Quetiapine Fumarate [Seroquel] 800 mg PO QHS 12/01/17 Allergies/Adverse Reactions: No Known Allergies Allergy (Verified 11/29/17 20:24) Physical Exam Vital Signs: Temp Pulse Resp BP Pulse Ox 98.4 F 90 20 117/67 99 12/02/17 07:50 12/02/17 07:50 12/02/17 07:50 12/02/17 07:50 12/02/17 07:50 Intake & Output 12/01/17 12/02/17 12/03/17 06:59 06:59 06:59 Intake Total 500 Balance 500 Weight 79.7 kg Results Laboratory Results: 12/02/17 04:40 12/02/17 04:40 12/02/17 12/02/17 04:40 04:40 WBC 6.9 RBC 4.10 L Hgb 12.9 L D Hct 36.2 L MCV 88 MCH 31.4 MCHC 35.5 RDW 13.2 Plt Count 201 Sodium 134.1 L Potassium 3.7 Chloride 99 Carbon Dioxide 21 L Anion Gap 14 BUN 39 H Creatinine 1.74 H Est GFR ( Amer) 50 L Est GFR (Non-Af Amer) 41 L Glucose 210 H Calcium 8.1 L Impressions: Chest X-Ray 12/01/17 13:56 IMPRESSION: NO ACUTE RADIOGRAPHIC FINDING IN THE CHEST. Limited or Localized CT 12/01/17 17:07 IMPRESSION: No renal calculi are identified. Tiny calcific density is identified in the bladder posteriorly on the right which could be within the right uterovesical junction or represent a recently passed ureteric calculus. There is no significant hydronephrosis or hydroureter involving the right kidney. There is relative increased density in the bladder which was present on the previous study and could represent a hematoma or mass. Clinical correlation is recommended. Other findings as noted above Status: Image reviewed by me Assessment & Plan - Diagnosis (1) Hematuria Qualifiers: Hematuria type: gross Qualified Code(s): R31.0 - Gross hematuria Is this a current diagnosis for this admission?: Yes (2) UTI (urinary tract infection) Qualifiers: Urinary tract infection type: site unspecified Hematuria presence: with hematuria Qualified Code(s): N39.0 - Urinary tract infection, site not specified; R31.9 - Hematuria, unspecified; R31.9 - Hematuria, unspecified Is this a current diagnosis for this admission?: Yes - Plan Summary Plan Summary: This patient is a 57-year-old male with a 4 month history of intermittent gross hematuria. His primary physician is aware of it and is trying to schedule a workup previously. He was unable to tolerate an MRI as part of his workup and so did not proceed with any further workup at that time. He has had several visits to the emergency department here. Approximately 5 days ago he had a CT scan showing a distal right ureteral calculus with mild proximal collecting system fullness. CT on admission last evening showed that the calculus was most probably within the bladder, correlating with the patient' s absence of right flank pain. On the initial CT and on the repeat CT last evening, there was a bladder mass seen. The patient admits to passing clots and it does look a bit smaller on the repeat CT scan however is still present. Given his smoking history, he will need cystoscopy and possible biopsy or transurethral resection of a bladder tumor if present. Currently he is getting hydration for his acute renal failure which may be due to vomiting and diminished p.o. fluid intake. That is not clear at this time. Impression: 1. Gross hematuria, possibly secondary to bladder lesion. 2. Intravesical lesion noted on CT, clot versus tumor. 3. Acute renal failure, possibly secondary to or exacerbated by dehydration. 4. Recently passed right ureteral calculus 5. Probable urinary tract infection Plan: 1. This patient needs urologic follow-up with cystoscopy as a minimum. This should be accomplished after treatment of his cystitis and resolution of his acute renal failure. This should occur as soon as possible. I have discussed the findings with the patient who prefers to be seen at the [facility]. I have recommended the [facility] and given him the telephone number there. 2. Treat urinary tract infection with appropriate antibiotics when culture is returned. 3. Strain urine and send stone for analysis if recovered. 4. Agree with continued hydration and will repeat labs today.
[2017-12-02] MEDS: DOCUSATE SODIUM 100 MG CAPSULE PO SCH ×2 (11:18→18:32)
[2017-12-02] MEDS: SENNOSIDES/DOCUSATE 8.6-50 MG 1 EACH TABLET PO SCH ×2 (11:18→18:32)
[2017-12-02] MEDS: LORAZEPAM 1 MG TABLET PO PRN ×2 (11:18→18:34)
[2017-12-02 15:31] LABS: ALANINE AMINOTRANSFERASE 34 U/L (21-72); ALKALINE PHOSPHATASE 53 U/L (38-126); ANION GAP 10 (5-19); ASPARTATE AMINO TRANSFERASE 19 U/L (17-59); BILIRUBIN,DIRECT 0.3 mg/dL (0.0-0.4); BILIRUBIN,TOTAL 0.8 mg/dL (0.2-1.3); BLOOD UREA NITROGEN 25 mg/dL (7-20); CALCIUM 8.9 mg/dL (8.4-10.2); CARBON DIOXIDE 25 mmol/L (22-30); CHLORIDE 102 mmol/L (98-107); GLUCOSE 133 mg/dL (75-110); POTASSIUM 4.4 mmol/L (3.6-5.0); SODIUM 136.6 mmol/L (137-145); TOTAL PROTEIN 6.1 g/dL (6.3-8.2)
[2017-12-02 16:07] VITALS: BP 114/73
--- NOTE | 2017-12-02 18:32 | PDOC DISCHARGE SUMMARY ---
General - Admit/Disc Date/PCP Admission Date/Primary Care Provider: 12/01/17 20:32 ANT HASSAN MD Discharge Date: 12/02/17 - Discharge Diagnosis (1) Diabetes mellitus type 2 in nonobese Is this a current diagnosis for this admission?: Yes (2) Hematuria Is this a current diagnosis for this admission?: Yes (3) Renal failure, acute Is this a current diagnosis for this admission?: Yes (4) Tobacco dependence Is this a current diagnosis for this admission?: Yes (5) UTI (urinary tract infection) Is this a current diagnosis for this admission?: Yes - Additional Information Resuscitation Status: Full Code Home Medications: Aspirin [Aspirin EC] 81 mg PO QPM 12/01/17 Metformin HCl [Glucophage 500 mg Tablet] 500 mg PO Q12 12/01/17 Quetiapine Fumarate [Seroquel] 800 mg PO QHS 12/01/17 History of Present Illness History of Present Illness: TRACE SARMIENTO is a 57 year old male presents complaining of weakness and feeling faint, he was working out in the heat yesterday and he felt dizzy and fell to his knees but did not pass out. C/o nausea and vomiting 3 episodes since morning. Patient states he was attempting to drink cranberry juice because he has had hematuria and was wanting to help treat the blood in his urine. He also reported leg cramps over the past few days. Patient was evaluated here in the emergency department on 828 and found to have a right distal ureteral stone. Hematuria with blood clots, he has not been eating for the last 3 days. Patient has history of kidney stones and about 4-5 months in [place] he had also a couple of times hematuria. Hospital Course Hospital Course: Patient was started on aggressive IV hydration and his hematuria resolved his creatinine went back to 1.02. Repeat electrolytes within normal limit. Urology was consulted and patient decided to continue his treatment as at the [facility]. Please refer to neurology urology note. On the day of discharge patient did not have any hematuria his weakness has recovered and he was not complaining of any fever chills nausea vomiting abdominal pain diarrhea constipation or any urinary symptoms. Physical Exam Vital Signs: Temp Pulse Resp BP Pulse Ox 97.5 F 96 16 114/73 100 12/02/17 15:32 12/02/17 15:32 12/02/17 15:32 12/02/17 15:32 12/02/17 15:32 Intake & Output 12/01/17 12/02/17 12/03/17 06:59 06:59 06:59 Intake Total 500 1508 Balance 500 1508 Weight 79.7 kg General appearance: PRESENT: no acute distress, well-developed, well-nourished Head exam: PRESENT: atraumatic, normocephalic Eye exam: PRESENT: conjunctiva pink, EOMI, PERRLA. ABSENT: scleral icterus Ear exam: PRESENT: normal external ear exam Mouth exam: PRESENT: moist, tongue midline Neck exam: ABSENT: carotid bruit, JVD, lymphadenopathy, thyromegaly Respiratory exam: PRESENT: clear to auscultation swathi. ABSENT: rales, rhonchi, wheezes Cardiovascular exam: PRESENT: RRR. ABSENT: diastolic murmur, rubs, systolic murmur Pulses: PRESENT: normal dorsalis pedis pul Vascular exam: PRESENT: normal capillary refill GI/Abdominal exam: PRESENT: normal bowel sounds, soft. ABSENT: distended, guarding, mass, organolmegaly, rebound, tenderness Rectal exam: PRESENT: deferred Extremities exam: PRESENT: full ROM. ABSENT: calf tenderness, clubbing, pedal edema Neurological exam: PRESENT: alert, awake, oriented to person, oriented to place , oriented to time, oriented to situation, CN II-XII grossly intact. ABSENT: motor sensory deficit Psychiatric exam: PRESENT: appropriate affect, normal mood. ABSENT: homicidal ideation, suicidal ideation Skin exam: PRESENT: dry, intact, warm. ABSENT: cyanosis, rash Results Laboratory Results: 12/02/17 04:40 12/02/17 14:19 12/02/17 12/02/17 12/02/17 04:40 04:40 14:19 WBC 6.9 RBC 4.10 L Hgb 12.9 L D Hct 36.2 L MCV 88 MCH 31.4 MCHC 35.5 RDW 13.2 Plt Count 201 Sodium 134.1 L 136.6 L Potassium 3.7 4.4 Chloride 99 102 Carbon Dioxide 21 L 25 Anion Gap 14 10 BUN 39 H 25 H Creatinine 1.74 H 1.02 Est GFR ( Amer) 50 L > 60 Est GFR (Non-Af Amer) 41 L > 60 Glucose 210 H 133 H Calcium 8.1 L 8.9 Total Bilirubin 0.8 AST 19 ALT 34 Alkaline Phosphatase 53 Total Protein 6.1 L Albumin 4.0 Impressions: Chest X-Ray 12/01/17 13:56 IMPRESSION: NO ACUTE RADIOGRAPHIC FINDING IN THE CHEST. Limited or Localized CT 12/01/17 17:07 IMPRESSION: No renal calculi are identified. Tiny calcific density is identified in the bladder posteriorly on the right which could be within the right uterovesical junction or represent a recently passed ureteric calculus. There is no significant hydronephrosis or hydroureter involving the right kidney. There is relative increased density in the bladder which was present on the previous study and could represent a hematoma or mass. Clinical correlation is recommended. Other findings as noted above Qualifiers - * PATIENT BEING DISCHARGED WITH ANY OF THE FOLLOWING DIAGNOSIS: No
[2017-12-02] MEDS ORDERED: CEPHALEXIN 500 MG CAPSULE PO SCH (22:00)
== END 2017-12-02 19:10 | disposition home or self-care (01) | DRG 696 ==
LOC: ER 12:26 → INTOOBSV 19:53 → EH 19:53 → INTOOBSV 20:32 → OBSVTOIN 20:32 → 4W 12-02 01:44
PROVIDERS: ADMIT Internal Medicine; ATTEND Internal Medicine
DX: R31.0 Gross hematuria (principal); N39.0 Urinary tract infection, site not specified; N17.9 Acute kidney failure, unspecified; I10 Essential (primary) hypertension; E11.9 Type 2 diabetes mellitus without complications; F31.9 Bipolar disorder, unspecified; Z79.82 Long term (current) use of aspirin; Z79.84 Long term (current) use of oral hypoglycemic drugs; Z79.899 Other long term (current) drug therapy; F17.210 Nicotine dependence, cigarettes, uncomplicated
CPT/HCPCS: 36415; 71046; 76380; 80048; 80053; 81001; 82550; 82962; 85025; 85027; 85610; 85730; 87086; 93005; 93010; 96361; 96365; 99285; J0696; J1815; J7030; S0119

== ENCOUNTER 2017-12-06 21:15 | Emergency (ER) | payer OTHER ==
[2017-12-06 21:19] VITALS: BP 139/75
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
== END 2017-12-06 22:02 | disposition home or self-care (01) ==
LOC: ER 21:15
DX: M62.830 Muscle spasm of back (principal); F17.210 Nicotine dependence, cigarettes, uncomplicated
CPT/HCPCS: 99281; 99406

== ENCOUNTER 2017-12-11 09:35 | Emergency (ER) | payer OTHER ==
[2017-12-11 09:57] VITALS: BP 137/73
== END 2017-12-11 12:37 | disposition left against medical advice (07) ==
LOC: ER 09:35
DX: R42 Dizziness and giddiness (principal); Z53.21 Procedure and treatment not carried out due to patient leaving prior to being seen by health care provider

== ENCOUNTER 2017-12-16 03:47 | Emergency (ER) | payer OTHER ==
[2017-12-16 05:10] VITALS: BP 167/84
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
[2017-12-16] MEDS ORDERED: CYCLOBENZAPRINE HCL 10 MG TABLET PO ONE (09:28)
[2017-12-16] MEDS ORDERED: HYDROCODONE/ACETAMINOPHEN 5-325 MG (6 TAB/ER DISP) PO PRN (11:16)
== END 2017-12-16 09:53 | disposition home or self-care (01) ==
LOC: ER 03:47
DX: M94.0 Chondrocostal junction syndrome [Tietze] (principal); Z04.8 Encounter for examination and observation for other specified reasons; F17.210 Nicotine dependence, cigarettes, uncomplicated
CPT/HCPCS: 71111; 99283

== ENCOUNTER 2017-12-20 07:48 | Emergency (ER) | payer OTHER ==
[2017-12-20 07:52] VITALS: BP 152/83
[2017-12-20] MEDS ORDERED: HYDROCODONE/ACETAMINOPHEN 5-325 MG (6 TAB/ER DISP) PO PRN (08:14)
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
== END 2017-12-20 08:49 | disposition home or self-care (01) ==
LOC: ER 07:48
DX: M94.0 Chondrocostal junction syndrome [Tietze] (principal); R07.81 Pleurodynia; F17.210 Nicotine dependence, cigarettes, uncomplicated; Y04.2XXA Assault by strike against or bumped into by another person, initial encounter; Y92.511 Restaurant or cafe as the place of occurrence of the external cause; I10 Essential (primary) hypertension; E11.9 Type 2 diabetes mellitus without complications
CPT/HCPCS: 99283

== ENCOUNTER 2017-12-22 07:34 | Emergency (ER) | payer OTHER ==
[2017-12-22] MEDS ORDERED: MAGNESIUM CITRATE 296 ML BOTTLE PO ONE (07:49)
--- NOTE | 2017-12-22 07:54 | ER Document Report ---
ED General - General Chief Complaint: Groin Pain Stated Complaint: GROIN PAIN Time Seen by Provider: 12/22/17 07:40 TRAVEL OUTSIDE OF THE [place] IN LAST 30 DAYS: No - HPI Notes: Patient is a 57-year-old male that presents to the emergency department for chief complaint of constipation and urinary retention. Patient reports pain in his lower abdomen and an inability to urinate for the last 2 days. He states he is able to get a small stream but not fully empty his bladder. He states it is painful to urinate. The pain in his lower abdomen is nonradiating. He denies any penile discharge or testicular pain or swelling. He denies nausea and vomiting. Patient also states he feels constipated and has not had a bowel movement in 5 days. He is currently taking hydrocodone for rib injury. He states he cannot afford a stool softener. Past Medical History: Diabetes, bipolar Past Surgical History: Reviewed in chart Social History: Denies alcohol and drug use. Daily tobacco. Family History: Reviewed and noncontributory for presenting illness Allergies: Reviewed, see documented allergy list. REVIEW OF SYSTEMS: CONSTITUTIONAL : No fever No chills No diaphoresis No recent illness EENT: No vision changes No congestion No sore throat CARDIOVASCULAR: No chest pain No palpitations RESPIRATORY: No shortness of breath No cough No difficulty breathing GASTROINTESTINAL: abdominal pain No nausea No vomiting No diarrhea Constipation GENITOURINARY: dysuria No hematuria difficulty urinating MUSCULOSKELETAL: No back pain No leg pain No arm pain SKIN: No rashes No lesions LYMPHATIC: No swollen, enlarged glands. NEUROLOGICAL: No lightheadedness No headache No weakness No paresthesias PSYCHIATRIC: No anxiety No depression PHYSICAL EXAMINATION: Vital signs reviewed, nursing noted reviewed. GENERAL: Well-appearing, well-nourished and in no acute distress. HEAD: Atraumatic, normocephalic. EYES: Eyes appear normal, extraocular movements intact, sclera anicteric, conjunctiva are normal. ENT: nares patent, oropharynx clear without exudates. Moist mucous membranes. NECK: Normal range of motion, supple without lymphadenopathy LUNGS: Breath sounds clear to auscultation bilaterally and equal. No wheezes rales or rhonchi. HEART: Regular rate and rhythm without murmurs ABDOMEN: Soft, suprapubic tenderness, normoactive bowel sounds. No rebound, guarding, or rigidity. No masses appreciated. EXTREMITIES: Nontender, good range of motion, no pitting or edema. NEUROLOGICAL: No focal neurological deficits. Moves all extremities spontaneously Motor and sensory grossly intact on exam. PSYCH: Agitated SKIN: Warm, Dry, normal turgor, no rashes or lesions noted on exposed skin - Related Data Allergies/Adverse Reactions: No Known Allergies Allergy (Verified 12/06/17 21:15) Past Medical History - Social History Smoking Status: Current Every Day Smoker Family History: Reviewed & Not Pertinent - Past Medical History Cardiac Medical History: Reports: Hx Hypertension Endocrine Medical History: Reports: Hx Diabetes Mellitus Type 2 Renal/ Medical History: Denies: Hx Peritoneal Dialysis Musculoskeletal Medical History: Reports Hx Musculoskeletal Deformity, Reports Hx Musculoskeletal Trauma Psychiatric Medical History: Reports: Hx Anxiety, Hx Bipolar Disorder, Hx Depression Review of Systems - Review of Systems Notes: Dictated Physical Exam - Vital signs Vitals: Temp Pulse Resp BP Pulse Ox 97.5 F 108 H 19 169/86 H 99 12/22/17 07:42 12/22/17 07:42 12/22/17 07:42 12/22/17 07:42 12/22/17 07:42 - Notes Notes: Dictated Course - Re-evaluation Re-evalutation: 12/22/17 07:54 Vitals reviewed. Nursing note reviewed. Patient opiate pain medications and is having acute constipation which will be treated with magnesium citrate. Mckinney catheter placed and 1.5 L of urine was drained. Patient had significant improvement of all symptoms. Renal function and electrolytes are normal. Patient has no urinary tract infection. He will be discharged home with Mckinney catheter and referral to urology. He will be given MiraLAX for constipation. He was encouraged to stop taking pain medication as tolerated. Laboratory 12/22/17 12/22/17 12/22/17 07:13 07:13 08:00 WBC 5.6 RBC 4.79 Hgb 15.0 Hct 43.7 MCV 91 MCH 31.2 MCHC 34.3 RDW 13.6 Plt Count 172 Seg Neutrophils % 67.6 Lymphocytes % 23.6 Monocytes % 6.6 Eosinophils % 1.7 Basophils % 0.5 Absolute Neutrophils 3.8 Absolute Lymphocytes 1.3 Absolute Monocytes 0.4 Absolute Eosinophils 0.1 Absolute Basophils 0.0 Sodium 138.8 Potassium 4.4 Chloride 105 Carbon Dioxide 24 Anion Gap 10 BUN 13 Creatinine 0.71 Est GFR ( Amer) > 60 Est GFR (Non-Af Amer) > 60 Glucose 305 H Calcium 9.3 Urine Color YELLOW Urine Appearance SLIGHTLY-CLOUDY Urine pH 6.0 Ur Specific [place] 1.025 Urine Protein NEGATIVE Urine Glucose (UA) >=500 H Urine Ketones NEGATIVE Urine Blood NEGATIVE Urine Nitrite NEGATIVE Urine Bilirubin NEGATIVE Urine Urobilinogen 2.0 H Ur Leukocyte Esterase SMALL H Urine WBC (Auto) 12 Urine RBC (Auto) 2 U Hyaline Cast (Auto) 1 Squamous Epi Cells Auto <1 Calcium Oxalate Cr Auto RARE Urine Mucus (Auto) FEW Urine Ascorbic Acid NEGATIVE 12/22/17 09:13 - Vital Signs Vital signs: Temp Pulse Resp BP Pulse Ox 97.5 F 108 H 19 169/86 H 99 12/22/17 07:42 12/22/17 07:42 12/22/17 07:42 12/22/17 07:42 12/22/17 07:42 - Laboratory Result Diagrams: 12/22/17 07:13 12/22/17 07:13 Laboratory results interpreted by me: 12/22/17 12/22/17 07:13 08:00 Glucose 305 H Urine Glucose (UA) >=500 H Urine Urobilinogen 2.0 H Ur Leukocyte Esterase SMALL H Discharge - Discharge Clinical Impression: Mckinney catheter in place Condition: Stable Disposition: HOME, SELF-CARE Instructions: Urinary Retention ([facility]), Constipation ([facility]), Mckinney Catheter Care ([facility]) Additional Instructions: Please return to the emergency department if you have any worsening, or concern of your symptoms. Please return to the emergency department if you develop chest pain, difficulty breathing, severe abdominal pain, or ongoing vomiting. Please follow-up with your primary care physician in 2-3 days and any other recommended physicians. If prescribed, take all medications as directed. If you have any questions or concerns do not hesitate to return the emergency department for evaluation. Follow-up with urology for Mckinney catheter removal and reevaluation of your ability to urinate Prescriptions: Polyethylene Glycol 3350 [Miralax Powder 17 gm/Packet] 1 packet PO BID #20 pkg Referrals: [facility] [Provider Group] - Follow up as needed
[2017-12-22 08:16] LABS: ABSOLUTE EOSINOPHILS # (AUTO) 0.1 10^3/uL (0.0-0.6); ABSOLUTE LYMPHOCYTES (AUTO) 1.3 10^3/uL (0.5-4.7); ABSOLUTE MONOCYTES (AUTO) 0.4 10^3/uL (0.1-1.4); ABSOLUTE NEUT (AUTO) 3.8 10^3/uL (1.7-8.2); BASOPHILS % (AUTO) 0.5 % (0-2); EOSINOPHILS % (AUTO) 1.7 % (0-6); HEMATOCRIT 43.7 % (37.9-51.0); LYMPHOCYTES % (AUTO) 23.6 % (13-45); MEAN CORPUSCULAR HEMOGLOBIN 31.2 pg (27.0-33.4); MEAN CORPUSCULAR HGB CONC 34.3 g/dL (32.0-36.0); MEAN CORPUSCULAR VOLUME 91 fl (80-97); MONOCYTES % (AUTO) 6.6 % (3-13); PLATELET COUNT 172 10^3/uL (150-450); RED BLOOD COUNT 4.79 10^6/uL (4.35-5.55); RED CELL DISTRIBUTION WIDTH 13.6 % (11.5-14.0); SEGMENTED NEUTROPHILS % (AUTO) 67.6 % (42-78); TOTAL CELLS COUNTED % (AUTO) 100 %; WHITE BLOOD COUNT 5.6 10^3/uL (4.0-10.5)
[2017-12-22 08:24] LABS: APPEARANCE,URINE SLIGHTLY-CLOUDY; BILIRUBIN,URINE NEGATIVE (NEGATIVE); CALCIUM OXALATE CRYSTALS,URINE RARE /HPF; COLOR,URINE YELLOW; GLUCOSE, URINE >=500 mg/dL (NEGATIVE); KETONES,URINE NEGATIVE (NEGATIVE); LEUKOCYTE ESTERASE,URINE SMALL (NEGATIVE); NITRITE,URINE NEGATIVE (NEGATIVE); PROTEIN,URINE NEGATIVE (NEGATIVE); URINE SPECIFIC GRAVITY 1.025
[2017-12-22 08:38] LABS: ANION GAP 10 (5-19); BLOOD UREA NITROGEN 13 mg/dL (7-20); CALCIUM 9.3 mg/dL (8.4-10.2); CARBON DIOXIDE 24 mmol/L (22-30); CHLORIDE 105 mmol/L (98-107); GLUCOSE 305 mg/dL (75-110); POTASSIUM 4.4 mmol/L (3.6-5.0); SODIUM 138.8 mmol/L (137-145)
[2017-12-22 10:35] VITALS: BP 135/74
== END 2017-12-22 10:28 | disposition home or self-care (01) ==
LOC: ER 07:34
DX: Z46.6 Encounter for fitting and adjustment of urinary device (principal); K59.00 Constipation, unspecified; R33.9 Retention of urine, unspecified; R10.30 Lower abdominal pain, unspecified; F17.200 Nicotine dependence, unspecified, uncomplicated; I10 Essential (primary) hypertension; E11.9 Type 2 diabetes mellitus without complications
CPT/HCPCS: 99284; 51702; 36415; 85025; 80048; 81001; J3490

== ENCOUNTER 2017-12-22 18:44 | Emergency (ER) | payer OTHER ==
--- NOTE | 2017-12-22 20:01 | ER Document Report ---
ED GI/ - General Chief Complaint: Blood in Catheter Stated Complaint: BLOOD IN URINE Time Seen by Provider: 12/22/17 19:43 Mode of Arrival: Ambulatory Information source: Patient Notes: Patient states that he was here earlier today due to constipation and difficulty in being able to void. Patient states that earlier today he had a Stein catheter placed. Patient states that prior to arrival he noticed he had some blood in the catheter bag which prompted his visit tonight. Patient states that he has taken medication and has since had a bowel movement. Patient does report a previous history of hematuria in the past and is supposed to follow-up with the [facility] in [place] for further evaluation of hematuria to include a cystoscopy. Patient states that he has transportation issues and is currently homeless and has no way to get to the [facility]. Patient states that he has been talking to his family who do not live here in town to try to help him get a train ticket. Patient presently denies any pain symptoms, no abdominal pain, no back pain. Patient without any fever. TRAVEL OUTSIDE OF THE [place] IN LAST 30 DAYS: No - HPI Patient complains to provider of: Hematuria. No: Abdominal pain Onset: Just prior to arrival Timing/Duration: Sudden Quality of pain: No pain Pain Level: Denies Associated symptoms: Hematuria. denies: Dizzy, Nausea, Other Exacerbated by: Denies Relieved by: Denies Similar symptoms previously: Yes Recently seen / treated by doctor: Yes - Related Data Allergies/Adverse Reactions: No Known Allergies Allergy (Verified 12/22/17 18:46) Past Medical History - General Information source: Patient - Social History Smoking Status: Current Every Day Smoker Smoking Education Provided: Yes Frequency of alcohol use: None Drug Abuse: None Lives with: Homeless Family History: Reviewed & Not Pertinent Endocrine Medical History: Reports: Hx Diabetes Mellitus Type 2 Renal/ Medical History: Denies: Hx Peritoneal Dialysis Musculoskeletal Medical History: Reports Hx Musculoskeletal Deformity, Reports Hx Musculoskeletal Trauma Psychiatric Medical History: Reports: Hx Anxiety, Hx Bipolar Disorder, Hx Depression Surgical Hx: Negative Review of Systems - Review of Systems Constitutional: No symptoms reported. denies: Fever, Recent illness EENT: No symptoms reported Cardiovascular: No symptoms reported Respiratory: No symptoms reported. denies: Cough, Short of breath Gastrointestinal: No symptoms reported. denies: Abdominal pain, Vomiting Genitourinary: Burning - At catheter site, Hematuria. denies: Dysuria, Flank pain Male Genitourinary: No symptoms reported Musculoskeletal: No symptoms reported. denies: Back pain Skin: No symptoms reported Hematologic/Lymphatic: No symptoms reported Neurological/Psychological: No symptoms reported Physical Exam - Vital signs Vitals: Temp Pulse Resp BP Pulse Ox 98.5 F 97 18 150/76 H 96 12/22/17 19:19 12/22/17 19:19 12/22/17 19:19 12/22/17 19:19 12/22/17 19:19 - General General appearance: Appears well, Alert In distress: None - Respiratory Respiratory status: No respiratory distress Chest status: Nontender Breath sounds: Normal Chest palpation: Normal - Cardiovascular Rhythm: Regular Heart sounds: S1 appreciated, S2 appreciated Murmur: No - Abdominal Inspection: Normal Distension: No distension Bowel sounds: Normal Tenderness: Nontender - Genitourinary Tenderness: Nontender Scrotum: Normal Notes: blood noted to stein leg bag - Back Back: Normal, Nontender. No: CVA tenderness - Neurological Neuro grossly intact: Yes Cognition: Normal Carla Coma Scale Eye Opening: Spontaneous Carla Coma Scale Verbal: Oriented [place] Coma Scale Motor: Obeys Commands Carla Coma Scale Total: 15 - Psychological Associated symptoms: Normal affect, Normal mood - Skin Skin Temperature: Warm Skin Moisture: Dry Skin Color: Normal Course - Re-evaluation Re-evalutation: 12/22/17 20:[address] Arshad regarding patient presentation and diagnostic evaluation. Patient has a documented history of hematuria in the past and possible hematoma versus mass in the bladder. Patient was evaluated by urology during his previous admission earlier this month and was advised that he would need to have a cystoscopy performed. Patient states that he was supposed to have this set up at the [facility] in [place]. Patient states today that the [facility] has made contact with him but he is having issues with transportation. 12/22/17 21:24 Patient's diagnostic test results reviewed, patient with stable vital signs. No findings worrisome for acute renal failure. Patient without any pain symptoms. Patient does have a history of previous renal stone as well as possible bladder hematoma versus mass. Patient encouraged to follow-up with the [facility] for further diagnostic evaluation of his recurrent hematuria. - Vital Signs Vital signs: Temp Pulse Resp BP Pulse Ox 98.9 F 94 20 143/75 H 99 12/22/17 21:38 12/22/17 21:38 12/22/17 21:38 12/22/17 21:38 12/22/17 21:38 - Laboratory Result Diagrams: 12/22/17 20:30 12/22/17 20:30 Laboratory results interpreted by me: 12/22/17 12/22/17 20:30 20:30 Carbon Dioxide 31 H Glucose 167 H Direct Bilirubin 0.5 H AST 16 L Urine Protein >=500 H Urine Glucose (UA) 150 H Urine Blood LARGE H Urine Urobilinogen 2.0 H Labs- Entire Visit 12/22/17 12/22/17 12/22/17 20:30 20:30 20:30 WBC 7.9 RBC 4.78 Hgb 14.9 Hct 42.9 MCV 90 MCH 31.1 MCHC 34.6 RDW 13.5 Plt Count 188 Seg Neutrophils % 69.8 Lymphocytes % 20.9 Monocytes % 6.9 Eosinophils % 1.7 Basophils % 0.7 Absolute Neutrophils 5.5 Absolute Lymphocytes 1.6 Absolute Monocytes 0.5 Absolute Eosinophils 0.1 Absolute Basophils 0.1 PT 13.3 INR 0.96 APTT 28.0 Sodium 139.7 Potassium 4.1 Chloride 104 Carbon Dioxide 31 H Anion Gap 5 BUN 10 Creatinine 0.78 Est GFR ( Amer) > 60 Est GFR (Non-Af Amer) > 60 Glucose 167 H Calcium 9.3 Total Bilirubin 1.0 Direct Bilirubin 0.5 H Neonat Total Bilirubin Not Reportable Neonat Direct Bilirubin Not Reportable Neonat Indirect Bili Not Reportable AST 16 L ALT 31 Alkaline Phosphatase 51 Total Protein 6.5 Albumin 4.4 Urine Color Urine Appearance Urine pH Ur Specific [place] Urine Protein Urine Glucose (UA) Urine Ketones Urine Blood Urine Nitrite Urine Bilirubin Urine Urobilinogen Ur Leukocyte Esterase Urine WBC (Auto) Urine RBC (Auto) Urine Ascorbic Acid 12/22/17 20:30 WBC RBC Hgb Hct MCV MCH MCHC RDW Plt Count Seg Neutrophils % Lymphocytes % Monocytes % Eosinophils % Basophils % Absolute Neutrophils Absolute Lymphocytes Absolute Monocytes Absolute Eosinophils Absolute Basophils PT INR APTT Sodium Potassium Chloride Carbon Dioxide Anion Gap BUN Creatinine Est GFR ( Amer) Est GFR (Non-Af Amer) Glucose Calcium Total Bilirubin Direct Bilirubin Neonat Total Bilirubin Neonat Direct Bilirubin Neonat Indirect Bili AST ALT Alkaline Phosphatase Total Protein Albumin Urine Color RED Urine Appearance HAZY Urine pH 7.0 Ur Specific [place] 1.019 Urine Protein >=500 H Urine Glucose (UA) 150 H Urine Ketones NEGATIVE Urine Blood LARGE H Urine Nitrite NEGATIVE Urine Bilirubin NEGATIVE Urine Urobilinogen 2.0 H Ur Leukocyte Esterase NEGATIVE Urine WBC (Auto) >182 Urine RBC (Auto) >182 Urine Ascorbic Acid NEGATIVE - Diagnostic Test Radiology reviewed: Reports reviewed - Review of CT results from patient's limited CAT scans performed on 12/01/17 and 11/21/17. Discharge - Discharge Clinical Impression: UTI (urinary tract infection) Qualifiers: Urinary tract infection type: site unspecified Hematuria presence: with hematuria Qualified Code(s): N39.0 - Urinary tract infection, site not specified Hematuria Qualifiers: Hematuria type: gross Qualified Code(s): R31.0 - Gross hematuria Condition: Stable Disposition: HOME, SELF-CARE Instructions: Cephalexin ([facility]), Hematuria ([facility]), Urinary Tract Infection ([facility]) Additional Instructions: Return immediately for any new or worsening symptoms Followup with your primary care provider, call tomorrow to make a followup appointment Follow-up with the [facility] to have your cystoscopy procedure scheduled. Follow-up with urology for further evaluation, call Monday for an appointment Urine culture is pending, we will call you if you need any different treatment Prescriptions: Cephalexin Monohydrate [Keflex 500 mg Capsule] 500 mg PO BID 7 Days capsule Forms: Smoking Cessation Education Referrals: [facility] [Provider Group] - Follow up as needed [facility] [Provider Group] - Follow up as needed [facility] [Provider Group] - Follow up as needed [facility] [Provider Group] - Follow up as needed
[2017-12-22 20:44] LABS: ABSOLUTE BASOPHILS # (AUTO) 0.1 10^3/uL (0.0-0.2); ABSOLUTE EOSINOPHILS # (AUTO) 0.1 10^3/uL (0.0-0.6); ABSOLUTE LYMPHOCYTES (AUTO) 1.6 10^3/uL (0.5-4.7); ABSOLUTE MONOCYTES (AUTO) 0.5 10^3/uL (0.1-1.4); ABSOLUTE NEUT (AUTO) 5.5 10^3/uL (1.7-8.2); BASOPHILS % (AUTO) 0.7 % (0-2); EOSINOPHILS % (AUTO) 1.7 % (0-6); HEMATOCRIT 42.9 % (37.9-51.0); HEMOGLOBIN 14.9 g/dL (13.5-17.0); LYMPHOCYTES % (AUTO) 20.9 % (13-45); MEAN CORPUSCULAR HEMOGLOBIN 31.1 pg (27.0-33.4); MEAN CORPUSCULAR HGB CONC 34.6 g/dL (32.0-36.0); MEAN CORPUSCULAR VOLUME 90 fl (80-97); MONOCYTES % (AUTO) 6.9 % (3-13); PLATELET COUNT 188 10^3/uL (150-450); RED BLOOD COUNT 4.78 10^6/uL (4.35-5.55); RED CELL DISTRIBUTION WIDTH 13.5 % (11.5-14.0); SEGMENTED NEUTROPHILS % (AUTO) 69.8 % (42-78); TOTAL CELLS COUNTED % (AUTO) 100 %; WHITE BLOOD COUNT 7.9 10^3/uL (4.0-10.5)
[2017-12-22 20:52] LABS: INTERNATIONAL RATION (INR) 0.96; PROTHROMBIN TIME 13.3 SEC (11.4-15.4)
[2017-12-22 21:07] LABS: BILIRUBIN,URINE NEGATIVE (NEGATIVE); GLUCOSE, URINE 150 mg/dL (NEGATIVE); KETONES,URINE NEGATIVE (NEGATIVE); LEUKOCYTE ESTERASE,URINE NEGATIVE (NEGATIVE); NITRITE,URINE NEGATIVE (NEGATIVE); PROTEIN,URINE >=500 mg/dL (NEGATIVE); URINE SPECIFIC GRAVITY 1.019
[2017-12-22 21:09] LABS: ALANINE AMINOTRANSFERASE 31 U/L (21-72); ALBUMIN 4.4 g/dL (3.5-5.0); ALKALINE PHOSPHATASE 51 U/L (38-126); ANION GAP 5 (5-19); ASPARTATE AMINO TRANSFERASE 16 U/L (17-59); BILIRUBIN,DIRECT 0.5 mg/dL (0.0-0.4); BLOOD UREA NITROGEN 10 mg/dL (7-20); CALCIUM 9.3 mg/dL (8.4-10.2); CARBON DIOXIDE 31 mmol/L (22-30); CHLORIDE 104 mmol/L (98-107); COLOR,URINE RED; GLUCOSE 167 mg/dL (75-110); POTASSIUM 4.1 mmol/L (3.6-5.0); SODIUM 139.7 mmol/L (137-145); TOTAL PROTEIN 6.5 g/dL (6.3-8.2)
[2017-12-22 21:10] LABS: APPEARANCE,URINE HAZY
[2017-12-22] MEDS ORDERED: CEPHALEXIN 500 MG CAPSULE PO ONE ×2 (21:20→21:22)
[2017-12-22 21:41] VITALS: BP 143/75
[2017-12-22] MEDS ORDERED: LIDOCAINE 5% (700 MG) TRANSDERMAL ADH..PATCH TP ONE (21:54)
== END 2017-12-22 22:20 | disposition home or self-care (01) ==
LOC: ER 18:44
DX: N39.0 Urinary tract infection, site not specified (principal); R31.0 Gross hematuria; F17.200 Nicotine dependence, unspecified, uncomplicated; E11.9 Type 2 diabetes mellitus without complications; Z46.6 Encounter for fitting and adjustment of urinary device
CPT/HCPCS: 36415; 80053; 81001; 85025; 85610; 85730; 87086; 99284

== ENCOUNTER 2017-12-23 01:02 | Emergency (ER) | payer OTHER ==
--- NOTE | 2017-12-23 03:06 | ER Document Report ---
ED GI/ - General Chief Complaint: Problem with Urinary Catheter Stated Complaint: HOPPER PROBLEM Time Seen by Provider: 12/23/17 02:18 Notes: Patient is a 57-year-old male who presents with chief complaint of "clogged Hopper bag". Patient reports he was seen in this emergency department earlier today, Hopper catheter was placed for hematuria. Patient denies any new symptoms but states there is a blood clot in the drainage port of the catheter bag. TRAVEL OUTSIDE OF THE [place] IN LAST 30 DAYS: No - Related Data Allergies/Adverse Reactions: No Known Allergies Allergy (Verified 12/23/17 01:38) Past Medical History - General Information source: Patient - Social History Smoking Status: Current Every Day Smoker Frequency of alcohol use: None Drug Abuse: None Family History: Reviewed & Not Pertinent Patient has suicidal ideation: No Patient has homicidal ideation: No - Past Medical History Cardiac Medical History: Reports: Hx Hypertension Endocrine Medical History: Reports: Hx Diabetes Mellitus Type 2 Renal/ Medical History: Denies: Hx Peritoneal Dialysis Musculoskeletal Medical History: Reports Hx Musculoskeletal Deformity, Reports Hx Musculoskeletal Trauma Psychiatric Medical History: Reports: Hx Anxiety, Hx Bipolar Disorder, Hx Depression Surgical Hx: Negative - Immunizations Immunizations up to date: Yes Review of Systems - Review of Systems -: Yes All other systems reviewed and negative Physical Exam - Vital signs Vitals: Temp Pulse Resp BP Pulse Ox 98.0 F 98 16 156/79 H 100 12/23/17 03:19 12/23/17 03:19 12/23/17 03:19 12/23/17 03:19 12/23/17 03:19 - Notes Notes: PHYSICAL EXAMINATION: GENERAL: Well-appearing, well-nourished and in no acute distress. HEAD: Atraumatic, normocephalic. EYES: Pupils equal round extraocular movements intact, conjunctiva are normal. ENT: Nares patent NECK: Normal range of motion LUNGS: No respiratory distress Musculoskeletal: Normal range of motion NEUROLOGICAL: Normal speech, normal gait. PSYCH: Normal mood, normal affect. SKIN: Warm, Dry, normal turgor, no rashes or lesions noted. Course - Re-evaluation Re-evalutation: New leg bag placed, patent and draining without difficulties. - Vital Signs Vital signs: Temp Pulse Resp BP Pulse Ox 98.0 F 98 16 156/79 H 100 12/23/17 03:19 12/23/17 03:19 12/23/17 03:19 12/23/17 03:19 12/23/17 03:19 Discharge - Discharge Clinical Impression: Obstructed Hopper catheter Qualifiers: Encounter type: initial encounter Qualified Code(s): T83.091A - Other mechanical complication of indwelling urethral catheter, initial encounter Condition: Stable Disposition: HOME, SELF-CARE Additional Instructions: Your Hopper catheter bag was changed today. This block to the obstruction that was located in the bag. Please follow-up with your urologist as previously planned during your discharge a few hours ago.
[2017-12-23 03:28] VITALS: BP 156/79
== END 2017-12-23 03:30 | disposition home or self-care (01) ==
LOC: ER 01:02
DX: T83.098A Other mechanical complication of other urinary catheter, initial encounter (principal); Y84.6 Urinary catheterization as the cause of abnormal reaction of the patient, or of later complication, without mention of misadventure at the time of the procedure; Y92.511 Restaurant or cafe as the place of occurrence of the external cause; I10 Essential (primary) hypertension; E11.9 Type 2 diabetes mellitus without complications; F17.200 Nicotine dependence, unspecified, uncomplicated
CPT/HCPCS: 99283